=== PATIENT | female | born 1935 | race Caucasian/White ===

== ENCOUNTER → 2024-11-12 12:47 | Outpatient (REF) | payer OTHER, SELFPAY | LOC: HWRAD 12:47 | PROVIDERS: ATTENDING PHYSICIAN Nurse Practitioner; FAMILY PHYSICIAN Family Medicine | DX: N39.46 Mixed incontinence (principal); M99.05 Segmental and somatic dysfunction of pelvic region | CPT/HCPCS: 76770; 76856 ==

== ENCOUNTER 2025-01-10 06:16 | Day surgery (SDC) | payer OTHER, SELFPAY ==
[2024-12-31 11:04] LABS: Hematocrit 39.6 % (37.0-47.0); Hemoglobin 12.7 g/dL (12.0-16.0); Mean Corp Hgb Conc. 32.1 g/dL (33.0-37.0); Mean Corpuscular Hgb 30.9 pg (27.0-31.0); Mean Corpuscular Volume 96.4 fL (81.0-99.0); Mean Platelet Volume 10.9 fL (7.4-10.4); Platelet Count 249 10^3/uL (130-400); Red Blood Cell Count 4.11 10^6/uL (4.20-5.40); Red Cell Dist. Width 13.2 % (11.5-14.5); White Blood Cell Count 6.7 10^3/uL (4.8-10.8)
[2024-12-31 11:28] LABS: Blood Urea Nitrogen 16 mg/dl (7-17); Calcium 9.5 mg/dl (8.4-10.2); Carbon Dioxide 29 mmol/L (22-30); Chloride 103 mmol/L (98-107); Glucose 92 mg/dl (70-99); Potassium 4.3 mmol/L (3.5-5.1); Sodium 139 mmol/L (135-145); eGFR 43.54
[2024-12-31 11:49] VITALS: BMI 26.9
--- NOTE | 2025-01-03 10:54 | PTCARENOTE ---
Patients 12/31 Creat 1.2; GFR-43.54- Sierra @ Dr. Vazquez office notified
[2025-01-10] VITALS (10 sets, daily range): BP systolic 127–158; BP diastolic 48–67; BMI 26.9
[2025-01-10] MEDS: NORMOSOL-R/PLASMALYTE-A 1000 IV (10:17)
[2025-01-10] MEDS: Pyridium 200 MG PO (10:17)
== END 2025-01-10 13:30 | disposition home or self-care (01) ==
LOC: SDS 06:16
PROVIDERS: ATTENDING PHYSICIAN Obstetrics & Gynecology; FAMILY PHYSICIAN Family Medicine
DX: N39.3 Stress incontinence (female) (male) (principal); N36.41 Hypermobility of urethra; N95.2 Postmenopausal atrophic vaginitis
CPT/HCPCS: 57288; 36415; 80048; 85027; 93005; C1713; C1771

== ENCOUNTER → 2025-01-28 12:45 | Outpatient (REF) | payer OTHER, SELFPAY | LOC: RAD 12:45 | PROVIDERS: ATTENDING PHYSICIAN Physician Assistant; FAMILY PHYSICIAN Family Medicine | DX: R60.0 Localized edema (principal) | CPT/HCPCS: 93970 ==

== ENCOUNTER 2025-09-05 09:14 | Inpatient (IN) | payer OTHER, SELFPAY ==
[2025-08-30] VITALS (7 sets, daily range): BP systolic 109–158; BP diastolic 50–85; BMI 23.0
--- NOTE | 2025-08-30 15:09 | ED.GENMED ---
History of Present Illness
<Myrna Marie NP - Last Filed: 08/30/25 22:34>
General
Chief Complaint: Back Pain
Source: patient
Exam Limitations: none
Time Seen by Provider: 08/30/25 14:49
Nursing documentation reviewed up to this point in time: agreed with
History of Present Illness
History of Present Illness:
Patient to ED with complaint of low back pain. Symptoms started approx 5 days ago. SHe was admitted here after a fall. Sustained fracture to right pelvis and hip. SHe was transferred to rehab and reports doing well there. She returned home
approx 2 weeks ago. States 5 days ago she was sleeping on her left side and when she woke the pain was there. Pain continues to worsen. Unable to tolerate the pain. To ED today via EMS for evaluation.
Past History
<Myrna Marie NP - Last Filed: 08/30/25 22:34>
Past History
ED Past Medical History: Hypercholesterolemia and Other (Mitral valve prolapse, renal insufficiency)
Social History
Tobacco: Former smoker
Alcohol: Occasional
Drug: None
Personal:
Living: with family
Review of Systems
<Myrna Marie NP - Last Filed: 08/30/25 22:34>
Review of Systems
Allergies reviewed?: Yes
All Other Systems: ROS reviewed and negative except as documented in HPI and ROS
Constitutional: Reports no symptoms
EENT: Reports no symptoms
Respiratory: Reports no symptoms
Cardiac: Reports no symptoms
ABD/GI: Reports no symptoms
: Reports no symptoms
Musculoskeletal: Reports back pain (low back pain, occasional radiation to left hip.)
Skin: Reports no symptoms
Neurological: Reports no symptoms
Psychiatric: Reports no symptoms
Phy Exam
<Myrna Marie NP - Last Filed: 08/30/25 22:34>
General Physical Exam
General Presentation: moderate distress
General age: appears stated age
General Skin: warm and dry
General Habitus: normal
General Mental: alert
Cardiovascular Exam
Cardiovascular Exam: regular rate/rhythm and no edema
Gastrointestinal Exam
Gastrointestinal Exam: normal bowel sounds, non tender, soft and no organomegaly
Musculoskeletal Exam
Musculoskeletal Exam: neuro vasc intact
Skin Exam
Skin Exam: normal color, warm/dry and no rash
Psychiatric Exam
Psychiatric Exam: normal mood/affect
Course
<Myrna Marie SAMPLE PROCESSOR - Last Filed: 08/30/25 22:34>
Orders/Labs/Results
Orders:
Orders
08/30/25 15:08
HYDROmorphone [Dilaudid] 0.25 mg IV NOW STA
Ondansetron Injectable [Zofran] 4 mg IV NOW STA
08/30/25 15:28
Lumbar Spine Complete, 4 View [CR Lumbar Spine Comp Min 4 Vw*] Urgent
Comment:
Reason For Exam: pain
08/30/25 15:39
Urinalysis Reflex To Culture Urgent
Date Specimen was Collected: 08/30/25
Time Specimen was Collected: 15:38
Urine Microscopic Reflex Cult Urgent
Urine Culture Urgent
ROBINA Source: U
Specimen Description:
Date Specimen was Collected: 08/30/25
Time Specimen was Collected: 15:38
08/30/25 16:10
HYDROmorphone [Dilaudid] 0.25 mg IV NOW STA
08/30/25 16:18
CT Abd/pel Without Iv Or Oral Urgent
Comment:
Reason For Exam: left low back/flank radiating to llq
08/30/25 16:21
Complete Blood Count/With Diff Urgent
Comprehensive Metabolic Panel Urgent
Magnesium Urgent
Comment: ADD ON
TSH Reflex To Free T4 Urgent
Comment: ADD ON
08/30/25 20:24
Magnesium Sulfate 2 Gram/50 ml [Magnesium Sulfate] 2 gram in 50 ml IV NOW
08/30/25 20:57
Admit/Transfer Patient As Directed
Co-Sign Provider:
Level of Care: Observation services
Assign to:: Medical/Surgical
Physician / Group: Awilda Menezes
Diagnosis: intractable left hip and left lower back pain
PRN Pain Medication Management As Directed
May give lesser potent ordered pain med per pt: Yes
preference::
Protocol:: Medication orders for pain may be administered in a
manner that supports deferring to patient preference
when the pt is:
- Requesting an ordered lesser potent pain medication.
Least to most potent pain medications are defined
as: acetaminophen < NSAID < tramadol < opioids
(morphine, oxycodone, hydromorphone).
- Requesting a lesser dose of the same medication IF
ORDERED.
- Requesting a less intrusive route of administration
if both routes are prescribed by the provider (PO <
IV).
08/30/25 20:58
Code Status As Directed
Resuscitation Status: Do not resuscitate
Reached after discussion with pt or family/Healthcare POA: Yes
Decision communicated with: patient
DNR Bracelet Application ONCE
08/30/25 21:50
Ibuprofen [Motrin] 400 mg PO Q6HPRN PRN
Oxycodone [Roxicodone] 5 mg PO Q4HPRN PRN
Trazodone [Desyrel] 50 mg PO HS PRN Insomnia
08/30/25 21:50
Activity As Directed
Activity Level: As Tolerated
Vital Signs As Directed
Frequency: Per unit guidelines
Weight As Directed
Frequency: Once
Comment: on admission
Pt Eval And Treat Routine
Activity Level: As Tolerated
DX Deep Vein Thrombosis Video Routine
08/30/25 22:00
Acetaminophen [Tylenol] 1,000 mg PO TID
Atorvastatin [Lipitor] 40 mg PO HS
Carbidopa/Levodopa [Sinemet 25-100] 1 tablet PO TID
Duloxetine Delayed Release [Cymbalta Delayed Release] 30 mg PO TID@1200,1700,2200
Pramipexole [Mirapex] 0.125 mg PO TID
08/31/25 Breakfast
Regular
08/31/25 08:00
Aspirin Low Dose EC [Aspir Low (Enteric Coated)] 81 mg PO DAILY
Duloxetine Delayed Release [Cymbalta Delayed Release] 60 mg PO DAILY
Lidocaine [Lidocaine 4% Patch] 1 patch TOPICAL DAILY
Apply Lidocaine patch(s) to:: left lower back/left hip
Losartan [Cozaar] 25 mg PO DAILY
Metoprolol Xl [Toprol Xl] 25 mg PO DAILY
Pantoprazole [Protonix] 40 mg PO DAILY
08/31/25 18:00
Enoxaparin Sodium [Lovenox] 40 mg SC QPM
Abnormal Lab Results
08/30/25 08/30/25
15:39 16:21
RBC 3.59 L 10^6/uL
(4.20-5.40)
Hgb 11.1 L g/dL
(12.0-16.0)
Hct 33.1 L %
(37.0-47.0)
MPV 10.7 H fL
(7.4-10.4)
Absolute Neuts (auto) 6.8 H 10^3/uL
(1.4-6.5)
Absolute Lymphs (auto) 1.0 L 10^3/uL
(1.2-3.4)
Absolute Monos (auto) 0.7 H 10^3/uL
(0.1-0.6)
Neutrophils % 77.4 H %
(42.2-75.2)
Lymphocytes % 10.9 L %
(20.5-51.1)
Sodium 134 L mmol/L
(135-145)
BUN 33 H mg/dl
(7-17)
Glucose 101 H mg/dl
(70-99)
Magnesium 1.5 L mg/dl
(1.6-2.3)
Total Protein 6.2 L g/dl
(6.3-8.2)
Ur Occult Blood Reflex 2+ A
(Negative)
Leukocyte Esterase Rfl 2+ A
(Negative)
Urine RBC 3-6 A /HPF
(0-2)
Urine Bacteria (Reflex) Few A
(Negative)
Urine Albumin (Reflex) 1+ A
(Neg - Trace)
08/30/25 16:21
08/30/25 16:21
Vital Signs
Initial and Last Documented VS:
Initial Vital Signs
Temp Pulse Resp BP Pulse Ox
98.1 F 84 16 125/57 91
08/30/25 14:12 08/30/25 14:12 08/30/25 14:12 08/30/25 14:12 08/30/25 14:12
Last Documented Vital Signs
Temp Pulse Resp BP Pulse Ox
97.9 F 81 16 109/67 92
08/30/25 22:08 08/30/25 22:08 08/30/25 22:08 08/30/25 22:08 08/30/25 22:08
<Reed Berg MD - Last Filed: 08/30/25 19:22>
Orders/Labs/Results
Orders:
Orders
08/30/25 15:08
HYDROmorphone [Dilaudid] 0.25 mg IV NOW STA
Ondansetron Injectable [Zofran] 4 mg IV NOW STA
08/30/25 15:28
Lumbar Spine Complete, 4 View [CR Lumbar Spine Comp Min 4 Vw*] Urgent
Comment:
Reason For Exam: pain
08/30/25 15:39
Urinalysis Reflex To Culture Urgent
Date Specimen was Collected: 08/30/25
Time Specimen was Collected: 15:38
Urine Microscopic Reflex Cult Urgent
Urine Culture Urgent
ROBINA Source: U
Specimen Description:
Date Specimen was Collected: 08/30/25
Time Specimen was Collected: 15:38
08/30/25 16:10
HYDROmorphone [Dilaudid] 0.25 mg IV NOW STA
08/30/25 16:18
CT Abd/pel Without Iv Or Oral Urgent
Comment:
Reason For Exam: left low back/flank radiating to llq
08/30/25 16:21
Complete Blood Count/With Diff Urgent
Comprehensive Metabolic Panel Urgent
Magnesium Urgent
Comment: ADD ON
TSH Reflex To Free T4 Urgent
Comment: ADD ON
08/30/25 20:24
Magnesium Sulfate 2 Gram/50 ml [Magnesium Sulfate] 2 gram in 50 ml IV NOW
08/30/25 20:57
Admit/Transfer Patient As Directed
Co-Sign Provider:
Level of Care: Observation services
Assign to:: Medical/Surgical
Physician / Group: Awilda Menezes
Diagnosis: intractable left hip and left lower back pain
PRN Pain Medication Management As Directed
May give lesser potent ordered pain med per pt: Yes
preference::
Protocol:: Medication orders for pain may be administered in a
manner that supports deferring to patient preference
when the pt is:
- Requesting an ordered lesser potent pain medication.
Least to most potent pain medications are defined
as: acetaminophen < NSAID < tramadol < opioids
(morphine, oxycodone, hydromorphone).
- Requesting a lesser dose of the same medication IF
ORDERED.
- Requesting a less intrusive route of administration
if both routes are prescribed by the provider (PO <
IV).
08/30/25 20:58
Code Status As Directed
Resuscitation Status: Do not resuscitate
Reached after discussion with pt or family/Healthcare POA: Yes
Decision communicated with: patient
DNR Bracelet Application ONCE
08/30/25 21:50
Ibuprofen [Motrin] 400 mg PO Q6HPRN PRN
Oxycodone [Roxicodone] 5 mg PO Q4HPRN PRN
Trazodone [Desyrel] 50 mg PO HS PRN Insomnia
08/30/25 21:50
Activity As Directed
Activity Level: As Tolerated
Vital Signs As Directed
Frequency: Per unit guidelines
Weight As Directed
Frequency: Once
Comment: on admission
Pt Eval And Treat Routine
Activity Level: As Tolerated
DX Deep Vein Thrombosis Video Routine
08/30/25 22:00
Acetaminophen [Tylenol] 1,000 mg PO TID
Atorvastatin [Lipitor] 40 mg PO HS
Carbidopa/Levodopa [Sinemet 25-100] 1 tablet PO TID
Duloxetine Delayed Release [Cymbalta Delayed Release] 30 mg PO TID@1200,1700,2200
Pramipexole [Mirapex] 0.125 mg PO TID
08/31/25 Breakfast
Regular
08/31/25 08:00
Aspirin Low Dose EC [Aspir Low (Enteric Coated)] 81 mg PO DAILY
Duloxetine Delayed Release [Cymbalta Delayed Release] 60 mg PO DAILY
Lidocaine [Lidocaine 4% Patch] 1 patch TOPICAL DAILY
Apply Lidocaine patch(s) to:: left lower back/left hip
Losartan [Cozaar] 25 mg PO DAILY
Metoprolol Xl [Toprol Xl] 25 mg PO DAILY
Pantoprazole [Protonix] 40 mg PO DAILY
08/31/25 18:00
Enoxaparin Sodium [Lovenox] 40 mg SC QPM
Abnormal Lab Results
08/30/25 08/30/25
15:39 16:21
RBC 3.59 L 10^6/uL
(4.20-5.40)
Hgb 11.1 L g/dL
(12.0-16.0)
Hct 33.1 L %
(37.0-47.0)
MPV 10.7 H fL
(7.4-10.4)
Absolute Neuts (auto) 6.8 H 10^3/uL
(1.4-6.5)
Absolute Lymphs (auto) 1.0 L 10^3/uL
(1.2-3.4)
Absolute Monos (auto) 0.7 H 10^3/uL
(0.1-0.6)
Neutrophils % 77.4 H %
(42.2-75.2)
Lymphocytes % 10.9 L %
(20.5-51.1)
Sodium 134 L mmol/L
(135-145)
BUN 33 H mg/dl
(7-17)
Glucose 101 H mg/dl
(70-99)
Magnesium 1.5 L mg/dl
(1.6-2.3)
Total Protein 6.2 L g/dl
(6.3-8.2)
Ur Occult Blood Reflex 2+ A
(Negative)
Leukocyte Esterase Rfl 2+ A
(Negative)
Urine RBC 3-6 A /HPF
(0-2)
Urine Bacteria (Reflex) Few A
(Negative)
Urine Albumin (Reflex) 1+ A
(Neg - Trace)
08/30/25 16:21
08/30/25 16:21
Vital Signs
Initial and Last Documented VS:
Initial Vital Signs
Temp Pulse Resp BP Pulse Ox
98.1 F 84 16 125/57 91
08/30/25 14:12 08/30/25 14:12 08/30/25 14:12 08/30/25 14:12 08/30/25 14:12
Last Documented Vital Signs
Temp Pulse Resp BP Pulse Ox
97.9 F 81 16 109/67 92
08/30/25 22:08 08/30/25 22:08 08/30/25 22:08 08/30/25 22:08 08/30/25 22:08
<Myrna Marie NP - Last Filed: 08/30/25 22:34>
*Pulse Oximetry
SaO2: 91
Oxygen Mode of Delivery: Room air
Patient hypoxic: no
*Critical Care Note
Total Time (30-74mins, 75-104mins- exclusive of procedures): Not Applicable
<Myrna Marie NP - Last Filed: 08/30/25 22:34>
Update Note
Update Note:
Patient to the emergency department from home with report of left lower back pain. Pain started approximately 5 days ago. She was recently discharged from a rehab facility after sustaining fractures to her right pelvis and right wrist due to a
fall. She states when she came home she was able to walk with a walker. Now states she has been laying in bed since Friday due to the pain in her left lower back. No history of new trauma. Lumbar x-ray reviewed, degenerative changes noted, no
acute fracture noted. CT of abdomen pelvis completed which she reports intermittent radiation of pain to right flank and groin. Subacute fractures of the right pelvis noted on CT, no acute findings. She was given 2 doses of Dilaudid in the ED.
Still with difficulty ambulating due to intense pain. Will admit to the hospitalist for intractable pain.
ED Attending Note
<Myrna Marie NP - Last Filed: 08/30/25 22:34>
-
Portions of this chart may have been created with voice recognition software.� Occasional wrong word or��sound alike� substitutions may have occurred due to the inherent limitations of voice recognition software.
<Reed Berg MD - Last Filed: 08/30/25 19:22>
ED Attending Note
Patient seen and examined by attending physician: Yes
I performed the substantive portion of visit, reviewed & personally made and approve the management plan that is documented in note by myself or BRANDON.: Yes
ED Attending Note:
I have seen and evaluated the patient with a [id number] encounter. I have spoken to the [BRANDON] and involved in the medical history, the physical exam, medical decision making.
Evaluation and management service: agree unless noted differently below.
Results interpretation: agree unless noted differently below.
89-year-old woman presenting to the emergency department with back pain. Per EMS she has been stuck in bed for the past few days after fall with pelvis fractures and wrist fractures that occurred 1-1/2 months ago. She was at rehab and now she is
home alone. A visiting nurse saw her today and told her to come to the emergency department for further evaluation. Patient at this time has no complaints besides with back pain. No numbness tingling. Slight weakness secondary to the pain.
During my evaluation patient is resting comfortably. Her abdomen soft nontender nondistended. She does have some weakness to her bilateral lower extremities which she says secondary to the pain. No sensory deficits. Will repeat imaging. Likely
patient will need admission for unsafe discharge home as well as intractable pain.
Discharge Plan
Departure
Patient Disposition: Admit
Date of Disposition: 08/30/25
Time of Disposition: 18:08
Presentation/result/management discussed w/ accepting MD/DO: Hospitalist
Condition: Fair
Covid-19: Not Applicable
Discharge Problem:
Intractable low back pain
Interventions
Interventions:
*Risk Screen - Suicide Last Done: 08/30/25 14:12
*General Assessment Last Done: 08/30/25 14:12
*Neglect/Abuse Screening Last Done: 08/30/25 14:12
*ED- Fall Risk Assessment Last Done: 08/30/25 19:44
*ED COVID-19 Vaccine History Last Done: 08/30/25 14:12
*ED Influenza Vaccine History Last Done: 08/30/25 14:12
*Nursing Disposition Last Done: 08/30/25 21:44
ED-Musculoskeletal Assessment Last Done: 08/30/25 19:46
Discharge Date and Time
Discharge Date/Time: 08/30/25 21:46
[2025-08-30] MEDS: ZOFRAN 4 MG IV (15:26)
[2025-08-30] MEDS: DILAUDID 0.25 MG IV ×2 (15:26→16:20)
[2025-08-30 16:03] LABS: Urine Character Clear (Clear)
[2025-08-30 16:27] LABS: Hematocrit 33.1 % (37.0-47.0); Hemoglobin 11.1 g/dL (12.0-16.0); Mean Corp Hgb Conc. 33.5 g/dL (33.0-37.0); Mean Corpuscular Volume 92.2 fL (81.0-99.0); Nucleated Red Blood Cells % 0 %; Platelet Count 281 10^3/uL (130-400); Red Cell Dist. Width 13.7 % (11.5-14.5)
[2025-08-30 16:44] LABS: ALT (SGPT) < 10 U/L (0-35); AST (SGOT) 15 U/L (14-36); Albumin 3.7 g/dl (3.5-5.0); Alkaline Phosphatase 101 U/L (38-126); Blood Urea Nitrogen 33 mg/dl (7-17); Calcium 9.6 mg/dl (8.4-10.2); Carbon Dioxide 25 mmol/L (22-30); Chloride 106 mmol/L (98-107); Estimated Creatinine Clearance 39 ml/min; Glucose 101 mg/dl (70-99); Potassium 4.6 mmol/L (3.5-5.1); Sodium 134 mmol/L (135-145); Total Protein 6.2 g/dl (6.3-8.2); eGFR > 60.00
[2025-08-30 16:50] LABS: Magnesium 1.5 mg/dl (1.6-2.3)
--- NOTE | 2025-08-30 20:07 | HPS.HSE ---
Family Physician
-
Family Physician: Myrna Pathak
Chief Complaint
-
pain to left side and left lower back
History of Present Illness
Patient is a 89-year-old female with past medical history significant for hypertension, hypercholesterolemia, chronic back pain, COPD, GERD, depression, chronic kidney disease stage IIIb and chronic tubulointerstitial nephritis who presented to [facility]
ED for evaluation of increased pain to left side and left lower back. Patient reports a fall with fracture, week stay at [facility] and then 5 weeks in [facility], where she reported doing really well. She returned home 2 weeks ago and
has been able to ambulate with walker and complete all ADLs until 3-4 days ago she noticed increased pain and difficulty ambulating that progressively got worse and in last two days has not been able to do anything at all. She reports that visiting
nurse came and recommended evaluation in ED. She denies any recent illness, fever, chills, cough, shortness of breath, chest pain, nausea, vomiting, constipation, diarrhea or urinary symptoms.
Medical History
Past Medical History
Past Medical History: Reports Other
Additional Past Medical History:
hypertension
hypercholesterolemia
chronic back pain
COPD
GERD
depression
chronic kidney disease stage IIIb
chronic tubulointerstitial nephritis
Past Surgical History: Reports Other
Additional Past Surgical History:
appendectomy
bilateral breast biopsy
hysterectomy
bilateral cataract extraction
Social History
Tobacco: Non-smoker
Alcohol: Occasional
Drug: None
Living: Alone
Family History
Family History: Not pertinent
Allergies / Home Medications
Allergies reflects when Allergies were last updated in [employer].
Home Medications with original date entered in [employer]
Allergy/Medication List:
Allergies
Allergy/AdvReac Type Severity Reaction Status Date / Time
levofloxacin (From Levaquin) Allergy itching at Verified 08/30/25 14:11
injection
site after
several
doses in
2012
penicillin G (Penicillin G) Allergy Rash, Verified 08/30/25 14:11
Itching
vancomycin (Vancomycin) Allergy Rash, Verified 08/30/25 14:11
Itching
Home Medications
aspirin 81 mg tablet,delayed release 81 mg PO DAILY 01/03/25
atorvastatin 40 mg tablet (Lipitor) 40 mg PO HS 01/03/25
carbidopa 25 mg-levodopa 100 mg tablet (Sinemet) 1 tab PO TID 01/03/25
duloxetine 30 mg capsule,delayed release (Cymbalta) 30 mg PO TID@1200,1700,2200 01/03/25
duloxetine 60 mg capsule,delayed release (Cymbalta) 60 mg PO DAILY 01/03/25
losartan 25 mg tablet (Cozaar) 25 mg PO DAILY 01/03/25
metoprolol succinate 25 mg tablet,extended release 24 hr (Toprol XL) 25 mg PO DAILY 01/03/25
pantoprazole 40 mg tablet,delayed release 40 mg PO DAILY 01/03/25
pramipexole 0.125 mg tablet 0.125 mg PO TID 01/03/25
trazodone 50 mg tablet 50 mg PO HS PRN Insomnia 01/03/25
Review of Systems
-
History Source: Patient
Constitutional: Denies Fever or Chills
EENT: Denies Sore Throat
Respiratory: Denies Cough, Hemoptysis or Trouble Breathing
Cardiac: Denies Chest Pain, Diaphoresis, Palpitations or Syncope
Abdomen/GI: Denies Abdominal Pain, Nausea, Vomiting or Diarrhea
: Denies Dysuria, Frequency or Urgency
Musculoskeletal: Reports Joint Pain (left hip) and Other (left lower back pain ); Denies Joint Swelling or Edema
Skin: Denies Rash
Neurological: Denies Dizzy, Headache, Weakness or Numbness
Physical Exam
Vital Signs
Vital Signs
Temp Pulse Resp BP Pulse Ox
97.6 F 78 20 152/68 92
08/30/25 19:49 08/30/25 19:48 08/30/25 19:48 08/30/25 19:48 08/30/25 19:48
Physical Exam
General: Well Developed, Well Nourished, No Apparent Distress, Comfortable and Conversant
HEENT: NormoCephalic, Moist mucous membranes, PERRLA, Nose Appears Normal and Ears Appear Normal
Respiratory: Clear and Non Labored Respirations
Cardiac: S1/S2 and Regular Rhythm; No Murmur or Peripheral Edema
GI: Soft, Non Tender and Normal Bowel Sounds
Musculoskeletal: No Clubbing, No Cyanosis and No Edema
Skin: Warm and IV/Catheter Site
Neuro: Awake and AO x 3
Hematologic/Lymphatic: No Lymphadenopathy
Psych: Calm and Intact Judgment/Insight
Laboratory Results
-
08/30/25 16:21
08/30/25 16:21
Laboratory Results
Total Bilirubin 0.6 mg/dl (0.2-1.3) 08/30/25 16:21
AST 15 U/L (14-36) 08/30/25 16:21
ALT < 10 U/L (0-35) 08/30/25 16:21
Alkaline Phosphatase 101 U/L (38-126) 08/30/25 16:21
Data Reviewed
-
Diagnostic Radiology: Report Reviewed by me (Lumbar spine: Postoperative and multilevel degenerative changes of the lumbar spine without acute fracture or complication.)
CT Scan: Report Reviewed by me (Abd/Pel: No renal or ureteral calculus. No bladder calculus. No obstructive uropathy. Asymmetric left renal cortical atrophy and cortical scarring. Small right renal cyst. Diverticulosis without acute
diverticulitis. Mild to moderate colonic fecal burden. No acute inflammatory process within the)
Lab Data: Labs Reviewed by me (mag 1.5)
Impression/Plan
-
IMPRESSION/PLAN:
#intractable left hip and left lower back pain
Lumbar spine x-ray: Postoperative and multilevel degenerative changes of the lumbar spine without acute fracture or complication.
Abd/Pel CT: No renal or ureteral calculus. No bladder calculus. No obstructive uropathy.
Asymmetric left renal cortical atrophy and cortical scarring. Small right renal cyst.
Diverticulosis without acute diverticulitis.
Mild to moderate colonic fecal burden.
No acute inflammatory process within the abdomen or pelvis.
Small liver cyst.
Cholelithiasis.
Subacute fractures involving the right sacrum, right superior and inferior pubic ramus and right pubic body, as described.
Lumbar postsurgical and degenerative changes.
- Admit to med/surg
- Consult PT
- Tylenol TID
- lidocaine patch daily
- PRN ibuprofen
- PRN oxycodone
#Parkinson's Disease
- continue Sinemet and Mirapex
#hypertension
- continue losartan and metoprolol
#hypercholesterolemia
- continue atorvastatin
#chronic back pain
- continue Cymbalta
#GERD
- continue pantoprazole
#depression
- continue trazodone
#COPD
#chronic kidney disease stage IIIb
#chronic tubulointerstitial nephritis
Code status: DNR
DVT prophylaxis: Lovenox sq
--- NOTE | 2025-08-30 20:34 | W.PN.UPDATE ---
Update Note
Progress Note Update
Patient seen in conjunction with nurse practitioner. I agree with the findings history and physical. I concur with assessment and plan unless otherwise stated.
This is a 89-year-old female who lives at home and has extensive past medical history including history of COPD, GERD, chronic osteoarthritis, restless leg syndrome, depression, prior back surgery requiring katja and screw insertion in 2007 who
presents to the emergency department from home for ambulatory dysfunction.
Patient had a fall about 1-1/2 months ago and had fractures to the pelvis and right wrist which was managed nonsurgically at [facility]. Fall was secondary to dog yanking on the leash and dragging her to the ground. She otherwise denies
ambulatory or gait difficulties. She was at a rehab and was discharged home alone., She did well at rehab. After being home she started noticing left-sided hip pain about 3 days ago. It became severe enough that she did not want to walk due to
the pain. She reports decreased p.o. intake due to not going to the kitchen to feed herself. She denies any radiation. She denies any incontinence of the bladder or bowel. Visiting nurse patient's today and found to have stuck in her bed.
Patient reports that she has been in bed for the last 3 days due to back pain.
In the emergency department the patient was afebrile, blood pressure was 152/60 with a pulse of 78 and was satting 92% on room air. CBC was normal. Electrolyte BUN/creatinine were in the normal range. UA was equivocal with some leukocyte esterase
and few WBCs and few bacteria but asymptomatic. Lumbar spine x-ray shows chronic multilevel degenerative disease of the spine. CT of the abdomen pelvis with subacute fractures involving the right sacrum, right superior and inferior pubic ramus and
right pubic body.
Assessment and plan
89-year-old female with chronic back pain and prior back surgery and recent pelvic fracture presenting to the emergency department with essentially ambulatory dysfunction in the setting of uncontrolled back pain at home. She is status post rehab
but lives alone and has been unable to ambulate by herself with help.
Ambulatory dysfunction -secondary to back pain and recent pelvic fracture
- Admit to MedSurg observation
- Management of back pain with analgesic including acetaminophen, Carprofen, low-dose oxycodone, topical lidocaine
- PT consultation
- Case management as patient may require return to rehab
Positive urinalysis -patient shows no classic symptoms, is afebrile and shows no leukocytosis. Status post sling
- Urine culture
- IV fluids and repeat UA but hold off on antibiotics for now unless symptomatic
Restless leg syndrome
- Continue Sinemet
-continue pramipexole
hypertension
- Continue her losartan, continue metoprolol
DVT prophylaxis -Lovenox subcu
CODE STATUS�DNR
[2025-08-30] MEDS: MAGNESIUM SULFATE 50 IV (20:46)
[2025-08-30] MEDS: ROXICODONE 5 MG PO (22:54)
[2025-08-30] MEDS: TYLENOL PO (22:55)
[2025-08-30] MEDS: SINEMET 25-100 1 TABLET PO (22:55)
[2025-08-30] MEDS: LIPITOR 40 MG PO (22:55)
[2025-08-30] MEDS: MIRAPEX 0.125 MG PO (22:57)
[2025-08-30] MEDS: NSS 500 IV (23:07)
[2025-08-31] MEDS: ROXICODONE 5 MG PO ×3 (05:56→21:05)
[2025-08-31] MEDS: COZAAR 25 MG PO (08:12)
[2025-08-31] MEDS: ASPIR LOW (ENTERIC COATED) 81 MG PO (08:12)
[2025-08-31] MEDS: TOPROL XL 25 MG PO (08:13)
[2025-08-31] MEDS: PROTONIX 40 MG PO (08:13)
[2025-08-31] MEDS: MIRAPEX 0.125 MG PO ×3 (08:13→21:05)
[2025-08-31] MEDS: CYMBALTA DELAYED RELEASE 60 MG PO (08:13)
[2025-08-31] MEDS: SINEMET 25-100 1 TABLET PO ×3 (08:13→21:05)
[2025-08-31] MEDS: LIDOCAINE 4% PATCH 1 PATCH TOPICAL (08:13)
[2025-08-31] MEDS: DESENEX/MITRAZOL/ZEASORB 1 APPLIC TOPICAL ×2 (08:13→21:04)
[2025-08-31] MEDS: TYLENOL 1000 MG PO ×3 (08:14→22:20)
[2025-08-31 08:27] VITALS: BP 142/57
--- NOTE | 2025-08-31 08:38 | W.PN.HOSP.TC ---
Today's Communication/Plan
-
Multimodal analgesic
PT/OT assessment
IVF and trend orthostats
Monitor for urinary symptoms
Assessment / Plan
Assessment / Plan
#Intractable back pain
#Recent pelvic fracture due to mechanical fall
#Back surgery with screw placement (2007)
#Ambulatory dysfunction
- Presented with intractable back pain secondary to recent fall when she was laying down by her dog
- CT abdomen/pelvis here showed subacute fractures of the right sacrum, superior and inferior pubic ramus as well as body
- Upon arrival was started on multimodal analgesic regimen with Tylenol, NSAIDs, topical lidocaine, and PRN oxycodone
- PT was consulted, anticipate she may require SNF placement, case management on board
- Continue to monitor pain and titrate analgesics as needed
- Encourage OOB activity as tolerated, WBAT
#Positive urinalysis
- Urinary tract infection versus asymptomatic bacteriuria
- UA with moderate bacteria, pyuria, positive leukocyte esterase; negative nitrite
- Denies any symptoms at this time, will continue to monitor
- Trend CBC and temperature curve off antibiotics for now
#Orthostatic hypotension
- Possibly associated with analgesics and hypokalemia
- Positive orthostatic vitals associated with symptoms on 08/31 with PT
- Will start on maintenance IV fluids and trend daily orthostats
- Consider midodrine PRN
#COPD
- Stable, home regimen currently without any bronchodilators or ICS
- No signs of bronchospasm at this time, continue to monitor clinically
#CKD stage IIIb
#Chronic tubulointerstitial nephritis
- Creatinine baseline near 1.2; no known systemic complications of CKD
- Will continue to monitor BMP and UOP here, avoid nephrotoxins as able
#GERD
- No known history of Mendez's esophagus or erosive disease
- Home regimen includes pantoprazole 40 mg daily
#Restless leg syndrome
- Home regimen includes Sinemet and pramipexole
#Primary hypertension
- Home medications include losartan 25 mg daily and metoprolol succinate 25 mg daily
- No known history of hypertensive systemic disease
- Blood pressure currently well-controlled
#Abdominal aortic aneurysm
#Bilateral carotid stenosis
#H/O TIA
- Has ASCVD history; no known stents or bypasses
- Home regimen includes high intensity statin and aspirin
Diet: Regular
DVT: SQ heparin
CODE: DNR
Disposition: Pending PT
Anticipated Discharge: Within 24 hours
Subjective/Interval History
-
Date of Service: August 31, 2025
Seen and examined at the bedside. No acute events reported overnight. AFVSS this morning
Was working with physical therapy when she developed lightheadedness after standing, blood pressure dropped to SBP in the 80s. Improved with time and laying back down.
Denies any other new complaints. Pain is well-controlled, denies chest pain, dyspnea, fevers or chills
Objective Data
-
Labs:
Laboratory Results
08/31/25
08:33
WBC Pending
Hgb Pending
Hct Pending
Plt Count Pending
Sodium Pending
Potassium Pending
Chloride Pending
Carbon Dioxide Pending
BUN Pending
Creatinine Pending
Glucose Pending
Calcium Pending
Vital Signs:
Vital Signs
Temp Pulse Resp BP Pulse Ox
97.8 F 76 18 142/57 99
08/31/25 08:27 08/31/25 08:27 08/31/25 08:27 08/31/25 08:27 08/31/25 08:27
I&O
08/30/25 08/31/25 09/01/25
06:59 06:59 06:59
Intake Total 700 / 700
Balance 700 / 700
Review of Systems
-
History Source: Patient
All other systems: Reviewed and negative
Physical Exam
-
General: Well Developed, Well Nourished and No Apparent Distress
HEENT: Normocephalic, Atraumatic, Moist Mucous Membranes and Anicteric
Respiratory: Clear to Auscultation and Non Labored Respirations; Negative Accessory Resp Muscle Use
Cardiac: Regular Rhythm, S1/S2 and Other (occasional PVC/PAC); Negative Murmur, Rub or Gallop
GI: Soft, Nontender, Nondistended and Normal Bowel Sounds
Musculoskeletal: No Clubbing, No Cyanosis, No Edema and Normal Gait & Station
Skin: Warm and Dry; Negative Rash
Neuro: AO x 3, Nonfocal/Grossly Intact and Central Nerve's Intact; Negative Tremors
Psych: Calm
Data Reviewed
-
Labs: Labs Reviewed by me, Discussed with Nurse and Discussed with Patient
[2025-08-31 08:57] LABS: Hematocrit 32.5 % (37.0-47.0); Hemoglobin 10.8 g/dL (12.0-16.0); Mean Corp Hgb Conc. 33.2 g/dL (33.0-37.0); Mean Corpuscular Volume 91.5 fL (81.0-99.0); Nucleated Red Blood Cells % 0 %; Platelet Count 266 10^3/uL (130-400); Red Cell Dist. Width 13.7 % (11.5-14.5)
[2025-08-31 09:05] VITALS: BP 129/55; BP 87/42; PULSE 82
[2025-08-31 09:23] LABS: Blood Urea Nitrogen 20 mg/dl (7-17); Calcium 9.2 mg/dl (8.4-10.2); Carbon Dioxide 24 mmol/L (22-30); Chloride 108 mmol/L (98-107); Estimated Creatinine Clearance 39 ml/min; Glucose 132 mg/dl (70-99); Magnesium 1.9 mg/dl (1.6-2.3); Potassium 4.1 mmol/L (3.5-5.1); Sodium 139 mmol/L (135-145); eGFR > 60.00
[2025-08-31] MEDS: LR 1000 IV ×2 (10:03→22:21)
[2025-08-31] MEDS: CYMBALTA DELAYED RELEASE 30 MG PO ×2 (11:05→17:13)
--- NOTE | 2025-08-31 12:00 | WOUNDNOTE ---
[facility] RN note: Patient seen during prevention rounds with leaflet or newspaper deliverer Maya Burns Skin on patient's heels intact. Protective foam dressing applied by GÉNESIS Trejo. Patient has mild MASD in alyse/buttocks/coccyx crease d/t moisture. She uses incontinence
briefs. Patient's incontinence brief wet. Brief removed and absorbant disposable under pad in place. Encouraged patient to get skin breaks from her pull up incontinence briefs. Left a mesh shorts with a couple of maternity pads if needed. Patient
turned self in bed. Heels off bed with pillow. Air chair cushion given. Instructed patient pressure injury prevention measures.
--- NOTE | 2025-08-31 12:00 | WOUNDNOTE ---
EAMON/BUTTOCKS/COCCYX CREASE
[2025-08-31 15:00] VITALS: BP 156/66
--- NOTE | 2025-08-31 16:12 | CM ---
card room manager reviewed patient's chart and met with patient and patient was admitted from home, patient states she lives in a condo with one step to enter, patient is independent with adl's and uses a walker with ambulation, patient has a cane that
she does not use, patient [facility].
PCP: Myrna Pathak
Pharmacy: [facility] in [place]
Plan; Home with [facility]
[2025-08-31] MEDS: LOVENOX 40 MG SC (17:12)
[2025-08-31] MEDS: LIPITOR 40 MG PO (21:05)
[2025-08-31 23:41] VITALS: BP 159/63
[2025-09-01] MEDS: ROXICODONE 5 MG PO ×2 (05:44→10:27)
[2025-09-01 07:46] VITALS: BP 125/70
[2025-09-01 07:48] VITALS: BP 125/70; BP 178/77; PULSE 74; PULSE 75
[2025-09-01] MEDS: LIDOCAINE 4% PATCH 1 PATCH TOPICAL (08:09)
--- NOTE | 2025-09-01 08:10 | W.PN.HOSP.TC ---
Today's Communication/Plan
-
Repeat orthostatic vital sign
Dispo planning
Assessment / Plan
Assessment / Plan
#Intractable back pain
#Recent pelvic fracture due to mechanical fall
#Back surgery with screw placement (2007)
#Ambulatory dysfunction
- Presented with intractable back pain secondary to recent fall when she was laying down by her dog
- CT abdomen/pelvis here showed subacute fractures of the right sacrum, superior and inferior pubic ramus as well as body
- Upon arrival was started on multimodal analgesic regimen with Tylenol, NSAIDs, topical lidocaine, and PRN oxycodone
- PT was consulted, anticipate she may require SNF placement, case management on board
- Continue to monitor pain and titrate analgesics as needed
- Encourage OOB activity as tolerated, WBAT
#Asymptomatic bacteriuria
- UA with moderate bacteria, pyuria, positive leukocyte esterase; negative nitrite
- Denies any symptoms at this time, will continue to monitor
- Trend CBC and temperature curve off antibiotics for now
#Orthostatic hypotension
- Possibly associated with analgesics and hypokalemia
- Positive orthostatic vitals associated with symptoms on 08/31 with PT
- Will start on maintenance IV fluids and trend daily orthostats
- Repeat orthostatic vital signs negative this morning
#COPD
- Stable, home regimen currently without any bronchodilators or ICS
- No signs of bronchospasm at this time, continue to monitor clinically
#CKD stage IIIb
#Chronic tubulointerstitial nephritis
- Creatinine baseline near 1.2; no known systemic complications of CKD
- Will continue to monitor BMP and UOP here, avoid nephrotoxins as able
#GERD
- No known history of Mendez's esophagus or erosive disease
- Home regimen includes pantoprazole 40 mg daily
#Restless leg syndrome
- Home regimen includes Sinemet and pramipexole
#Primary hypertension
- Home medications include losartan 25 mg daily and metoprolol succinate 25 mg daily
- No known history of hypertensive systemic disease
- Blood pressure currently well-controlled
#Abdominal aortic aneurysm
#Bilateral carotid stenosis
#H/O TIA
- Has ASCVD history; no known stents or bypasses
- Home regimen includes high intensity statin and aspirin
Diet: Regular
DVT: SQ heparin
CODE: DNR
Disposition: Homecare
Anticipated Discharge: Within 24 hours
Subjective/Interval History
-
Date of Service: September 01, 2025
Seen and examined at the bedside. No acute events reported overnight. AFVSS
Patient states she feels well, pain currently well-controlled.
AM orthostatics negative though only supine and sitting. Denies any new complaints
Objective Data
-
Labs:
Laboratory Results
09/01/25
07:53
WBC Pending
Hgb Pending
Hct Pending
Plt Count Pending
Sodium Pending
Potassium Pending
Chloride Pending
Carbon Dioxide Pending
BUN Pending
Creatinine Pending
Glucose Pending
Calcium Pending
Vital Signs:
Vital Signs
Temp Pulse Resp BP Pulse Ox
97.8 F 75 17 125/70 96
09/01/25 07:46 09/01/25 07:46 09/01/25 07:46 09/01/25 07:46 09/01/25 07:46
I&O
08/31/25 09/01/25 09/02/25
06:59 06:59 06:59
Intake Total 700 / 700
Balance 700 / 700
Review of Systems
-
History Source: Patient
All other systems: Reviewed and negative
Physical Exam
-
General: Well Developed, Well Nourished and No Apparent Distress
HEENT: Normocephalic, Atraumatic, Moist Mucous Membranes and Anicteric
Respiratory: Clear to Auscultation and Non Labored Respirations; Negative Accessory Resp Muscle Use
Cardiac: Regular Rhythm and S1/S2; Negative Murmur, Rub or Gallop
GI: Soft, Nontender, Nondistended and Normal Bowel Sounds
Musculoskeletal: No Clubbing, No Cyanosis and No Edema
Skin: Warm and Dry; Negative Rash
Neuro: AO x 3, Nonfocal/Grossly Intact and Central Nerve's Intact; Negative Tremors
Psych: Calm
Data Reviewed
-
Labs: Labs Reviewed by me and Discussed with Patient
[2025-09-01] MEDS: TYLENOL 1000 MG PO ×3 (08:11→21:55)
[2025-09-01] MEDS: CYMBALTA DELAYED RELEASE 60 MG PO (08:11)
[2025-09-01] MEDS: SINEMET 25-100 1 TABLET PO ×3 (08:12→21:11)
[2025-09-01] MEDS: MIRAPEX 0.125 MG PO ×3 (08:12→21:11)
[2025-09-01] MEDS: ASPIR LOW (ENTERIC COATED) 81 MG PO (08:12)
[2025-09-01] MEDS: PROTONIX 40 MG PO (08:12)
[2025-09-01] MEDS: TOPROL XL 25 MG PO (08:13)
[2025-09-01] MEDS: COZAAR 25 MG PO (08:13)
[2025-09-01 08:14] LABS: Hematocrit 35.3 % (37.0-47.0); Hemoglobin 11.0 g/dL (12.0-16.0); Mean Corp Hgb Conc. 31.2 g/dL (33.0-37.0); Mean Corpuscular Volume 95.1 fL (81.0-99.0); Nucleated Red Blood Cells % 0 %; Platelet Count 256 10^3/uL (130-400); Red Cell Dist. Width 13.7 % (11.5-14.5)
[2025-09-01] MEDS: LR 1000 IV (08:15)
[2025-09-01 08:45] LABS: Blood Urea Nitrogen 15 mg/dl (7-17); Calcium 9.1 mg/dl (8.4-10.2); Carbon Dioxide 22 mmol/L (22-30); Chloride 109 mmol/L (98-107); Estimated Creatinine Clearance 44 ml/min; Glucose 84 mg/dl (70-99); Potassium 4.1 mmol/L (3.5-5.1); Sodium 135 mmol/L (135-145); eGFR > 60.00
[2025-09-01 09:04] LABS: Magnesium 1.6 mg/dl (1.6-2.3)
[2025-09-01] MEDS: DESENEX/MITRAZOL/ZEASORB TOPICAL (09:33)
--- NOTE | 2025-09-01 10:21 | CM ---
Patient seen at bedside
current with [facility]
Referral in [facility]
spoke with Mirian gallego
IMM explained & signed
Plan; Home with [facility] when stable
[facility]
[2025-09-01] MEDS: ROXICODONE 10 MG PO ×2 (12:46→21:11)
[2025-09-01] MEDS: CYMBALTA DELAYED RELEASE 30 MG PO ×2 (12:46→17:54)
[2025-09-01 15:30] VITALS: BP 155/67
[2025-09-01] MEDS: LOVENOX 40 MG SC (17:54)
[2025-09-01] MEDS: DESENEX/MITRAZOL/ZEASORB 1 APPLIC TOPICAL (21:11)
[2025-09-01] MEDS: LIPITOR 40 MG PO (21:11)
[2025-09-01] MEDS: REMOVE LIDOCAINE PATCH 1 PATCH REMOVE (21:17)
[2025-09-01 23:19] VITALS: BP 140/58
[2025-09-02] MEDS: ROXICODONE 10 MG PO ×5 (02:15→21:38)
--- NOTE | 2025-09-02 05:02 | CON.ORTHO ---
Consultation
-
Date/Time Consultation Requested: Aug 27
Date/Time Consultation Performed: Aug 27
Requesting Provider: Tomas
Performing Provider: Chelsea Miguel
Reason for Consultation: Pelvis fractures
Consultation - Orthopedics
History
History of Present Illness:
Patient is a 89-year-old female with PMH of hypertension, hypercholesterolemia, chronic back pain, COPD, GERD, depression, chronic kidney disease stage IIIb and chronic tubulointerstitial nephritis who presented to [facility] for evaluation of increased
pain to left side and left lower back on August 27. Patient reports a fall with fracture about 6-7 weeks ago, with a week long stay [facility] where she reported doing really well. She returned home
2 weeks ago and has been able to ambulate with walker and complete ADLs until 3-4 days ago she noticed increased pain and difficulty ambulating that progressively got worse 2 days leading up to her ER presentation. She states the 2 days prior to ED
she has not been able to do anything at all. She reports that visiting nurse came and recommended evaluation in ED. She was admitted to Dr. Marin' service and they requested PT/OT. Was initially well and D/c was in the works with [facility], when her pain
suddenly worsened. Due to her ongoing, severe, low back and pelvis pain we were requested in consultation. Updated CT was ordered.
Past Medical History:
hypertension
hypercholesterolemia
chronic back pain
COPD
GERD
depression
chronic kidney disease stage IIIb
chronic tubulointerstitial nephritis
Past Surgical History:
appendectomy
bilateral breast biopsy
hysterectomy
bilateral cataract extraction
Social History:
Tobacco: Non-smoker
Alcohol: Occasional
Drug: None
Living: Alone
Family History:
Family History: Not pertinent
ROS:
12 point negative except for those noted in the HPI
Allergies / Home Medications
Allergy/AdvReac Type Severity Reaction Status Date / Time
levofloxacin (From Levaquin) Allergy itching at Verified 08/30/25 14:11
injection
site after
several
doses in
2012
penicillin G (Penicillin G) Allergy Rash, Verified 08/30/25 14:11
Itching
vancomycin (Vancomycin) Allergy Rash, Verified 08/30/25 14:11
Itching
�Medication �Instructions �Recorded
aspirin 81 mg tablet,delayed 81 mg PO DAILY Blood Clot 01/03/25
release Prevention/Tx
atorvastatin 40 mg tablet (Lipitor) 40 mg PO HS High Cholesterol 01/03/25
carbidopa 25 mg-levodopa 100 mg 1 tab PO TID Neurological Condition 01/03/25
tablet (Sinemet)
duloxetine 30 mg capsule,delayed 30 mg PO TID@1200,2000 01/03/25
release (Cymbalta) Neurological Condition
duloxetine 60 mg capsule,delayed 60 mg PO DAILY Neurological 01/03/25
release (Cymbalta) Condition
losartan 25 mg tablet (Cozaar) 25 mg PO DAILY Blood Pressure 01/03/25
metoprolol succinate 25 mg 25 mg PO DAILY Blood Pressure 01/03/25
tablet,extended release 24 hr
(Toprol XL)
pantoprazole 40 mg tablet,delayed 40 mg PO DAILY Gastrointestinal 01/03/25
release Issue
pramipexole 0.125 mg tablet 0.125 mg PO TID Neurological 01/03/25
Condition
trazodone 50 mg tablet 50 mg PO HS PRN Insomnia 01/03/25
acetaminophen 500 mg tablet 1,000 mg (2 x 500 mg) PO TID 7 09/01/25
(Tylenol Extra Strength) days #42 tabs
ibuprofen 400 mg tablet 400 mg PO Q6HPRN PRN mild pain 5 09/01/25
days #20 tabs
lidocaine 5 % topical patch 1 patch topical DAILY #30 ea 09/01/25
oxycodone 5 mg tablet 2.5 mg (1/2 x 5 mg) PO Q4HPRN PRN 09/01/25
moderate pain 5 days #10 tabs
oxycodone 5 mg tablet 5 mg PO Q8H PRN severe pain 5 days 09/01/25
#14 tabs
Vital Signs / Lab Results
Temp Pulse Resp BP Pulse Ox
98.0 F 69 16 140/58 92
09/01/25 23:19 09/01/25 23:19 09/01/25 23:19 09/01/25 23:19 09/01/25 23:19
09/01/25 07:53
09/01/25 07:53
Assessment / Plan
PE: Currently at bedrest. Generalized pain to palpation of the lumbar and pelvis regions. 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 Calves soft, nontender. DNVI B/L LEs
Diagnostics:
CT (Aug 27) reveals subtle hairline fractures of the left S1 and S2, which are more obvious compared to prior examination. Still noted are fractures of the right sacral ala, lateral right superior pubic ramus, medial right superior pubic ramus,
right pubic body, and right inferior pubic ramus, which appear unchanged from prior
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
Plan: Upon receipt of this consult and review of imaging yesterday Dr. Miguel shared the patient's history and imaging studies with Dr. Enrrique Melara, Chief of Trauma, [place] [facility] It appears that the patient is dealing with a (likely) unstable
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 Nearing 2 months from the injury, Dr. Melara recommended an outpatient follow-up for clinical exam and further discussion. Patient's contact information was sent
directly to Dr. Melara, at his request, so that his office could contact the patient for scheduling. Unfortunately this issue is beyond the current capabilities of our Orthopaedic team here in a [facility]. Appreciate "Jackson"Tomas' efforts. Plan to D/c when medically stable. May WBAT on her walker, which is recommended at all times, with anticipated follow-up with Dr. Melara and his team [place] [facility] Contact/Demo information sent directly to Dr. Melara after discussing
with him this AM. His office will be contacting her to schedule an outpatient appointment
[2025-09-02 07:15] VITALS: BP 165/72
[2025-09-02] MEDS: ASPIR LOW (ENTERIC COATED) 81 MG PO (08:05)
[2025-09-02] MEDS: PROTONIX 40 MG PO (08:05)
[2025-09-02] MEDS: COZAAR 25 MG PO (08:05)
[2025-09-02] MEDS: TOPROL XL 25 MG PO (08:05)
[2025-09-02] MEDS: TYLENOL 1000 MG PO ×3 (08:05→21:39)
[2025-09-02] MEDS: CYMBALTA DELAYED RELEASE 60 MG PO (08:05)
[2025-09-02] MEDS: SINEMET 25-100 1 TABLET PO ×3 (08:05→21:38)
[2025-09-02] MEDS: MIRAPEX 0.125 MG PO ×3 (08:05→21:38)
[2025-09-02] MEDS: LIDOCAINE 4% PATCH 1 PATCH TOPICAL (08:06)
[2025-09-02] MEDS: DESENEX/MITRAZOL/ZEASORB TOPICAL ×2 (08:15→21:41)
--- NOTE | 2025-09-02 08:21 | W.PN.HOSP.TC ---
Today's Communication/Plan
-
Disposition planning
Oxycodone 10/Oxy 5/ibuprofen as needed
Tylenol and lidocaine patch standing
OP follow-up with [place] orthopedist for surgical intervention
Assessment / Plan
Assessment / Plan
#Intractable back pain
#Subacute displaced pelvic fracture due to mechanical fall
#Back surgery with screw placement (2007)
#Ambulatory dysfunction
- Presented with intractable back pain secondary to recent fall when she was laying down by her dog
- CT abdomen/pelvis here showed subacute fractures of the right sacrum, superior and inferior pubic ramus as well as body
- Upon arrival was started on multimodal analgesic regimen with Tylenol, NSAIDs, topical lidocaine, and PRN oxycodone
- Discussed with orthopedics who reviewed images with trauma team at [facility], likely needs surgical intervention due to instability
- PT was consulted, anticipate she may require SNF placement, case management on board
- Continue to monitor pain and titrate analgesics as needed, now on Oxy 10 as needed
- Continue with weightbearing as tolerated with walker and multimodal analgesics
- To follow-up with orthopedics at [place] for surgical intervention after SNF
#Asymptomatic bacteriuria
- UA with moderate bacteria, pyuria, positive leukocyte esterase; negative nitrite
- Denies any symptoms at this time, will continue to monitor
- Trend CBC and temperature curve off antibiotics for now
#Orthostatic hypotension
- Possibly associated with analgesics and hypokalemia
- Positive orthostatic vitals associated with symptoms on 08/31 with PT
- Will start on maintenance IV fluids and trend daily orthostats
- Repeat orthostatic vital signs negative morning 09/01
#COPD
- Stable, home regimen currently without any bronchodilators or ICS
- No signs of bronchospasm at this time, continue to monitor clinically
#CKD stage IIIb
#Chronic tubulointerstitial nephritis
- Creatinine baseline near 1.2; no known systemic complications of CKD
- Will continue to monitor BMP and UOP here, avoid nephrotoxins as able
#GERD
- No known history of Mendez's esophagus or erosive disease
- Home regimen includes pantoprazole 40 mg daily
#Restless leg syndrome
- Home regimen includes Sinemet and pramipexole
#Primary hypertension
- Home medications include losartan 25 mg daily and metoprolol succinate 25 mg daily
- No known history of hypertensive systemic disease
- Blood pressure currently well-controlled
#Abdominal aortic aneurysm
#Bilateral carotid stenosis
#H/O TIA
- Has ASCVD history; no known stents or bypasses
- Home regimen includes high intensity statin and aspirin
Diet: Regular
DVT: SQ heparin
CODE: DNR
Disposition: SNF
Discussed with orthopedics
Anticipated Discharge: 24 - 48 hours
Subjective/Interval History
-
Date of Service: September 02, 2025
Seen and examined at the bedside. No acute events reported overnight. AFVSS this morning
Repeat CT yesterday did show signs of unstable pelvic ring, orthopedics evaluated and recommending follow-up with surgeon at [place] for possible pelvic surgical reconstruction
As of this morning she states her pain is improved with increased dose of oxycodone. Dispo now for SNF. Denies any new complaints
Objective Data
-
Vital Signs:
Vital Signs
Temp Pulse Resp BP Pulse Ox
98.0 F 69 16 140/58 92
09/01/25 23:19 09/01/25 23:19 09/01/25 23:19 09/01/25 23:19 09/01/25 23:19
I&O
09/01/25 09/02/25 09/03/25
06:59 06:59 06:59
Intake Total 2360 / 2360
Output Total 120 / 120
Balance 2360 / 2360 -120 / -120
Review of Systems
-
History Source: Patient
All other systems: Reviewed and negative
Physical Exam
-
General: Well Developed, Well Nourished and No Apparent Distress
HEENT: Normocephalic, Atraumatic and Moist Mucous Membranes
Respiratory: Clear to Auscultation and Non Labored Respirations; Negative Accessory Resp Muscle Use
Cardiac: Regular Rhythm and S1/S2; Negative Murmur, Rub or Gallop
GI: Soft, Nontender, Nondistended and Normal Bowel Sounds
Musculoskeletal: No Clubbing, No Cyanosis and No Edema
Skin: Warm and Dry; Negative Rash
Neuro: AO x 3, Nonfocal/Grossly Intact and Central Nerve's Intact
Psych: Calm
--- NOTE | 2025-09-02 12:00 | W.PN.UPDATE ---
Update Note
Progress Note Update
Discussed further with Dr. Melara. The patient does have a moderately difficult social situation. Dr. Melara has graciously agreed to accept the patient in transfer if that makes the most sense. Discussed with Dr. Marin, RN, and CM. they will speak
to the patient. If she is amendable to be transferred to [place], that may make the most sense. If so, Dr. Melara, himself, will contact the [place] transfer center so that nothing gets mixed up heading into the weekend, as the on-call this weekend for
[facility] is not trauma
[2025-09-02 12:02] VITALS: BP 159/69
[2025-09-02] MEDS: CYMBALTA DELAYED RELEASE 30 MG PO ×2 (13:00→17:19)
--- NOTE | 2025-09-02 14:23 | CM ---
Patient is for possible hospital to hospital transfer.
Plan; Hospital to hospital transfer.
[2025-09-02 15:01] VITALS: BP 155/67
[2025-09-02] MEDS: FLUZONE HIGH-DOSE 2025-26 0.5 ML IM (17:05)
[2025-09-02] MEDS: LOVENOX 40 MG SC (17:19)
[2025-09-02] MEDS: LIPITOR 40 MG PO (21:38)
[2025-09-02] MEDS: REMOVE LIDOCAINE PATCH 1 PATCH REMOVE (21:41)
[2025-09-02 23:18] VITALS: BP 152/63
[2025-09-03] MEDS: ROXICODONE 10 MG PO ×5 (04:37→21:24)
[2025-09-03 07:50] VITALS: BP 170/81
[2025-09-03] MEDS: CYMBALTA DELAYED RELEASE 60 MG PO (08:02)
[2025-09-03] MEDS: SINEMET 25-100 1 TABLET PO ×3 (08:02→21:29)
[2025-09-03] MEDS: MIRAPEX 0.125 MG PO ×3 (08:02→21:29)
[2025-09-03] MEDS: PROTONIX 40 MG PO (08:02)
[2025-09-03] MEDS: ASPIR LOW (ENTERIC COATED) 81 MG PO (08:02)
[2025-09-03] MEDS: LIDOCAINE 4% PATCH 1 PATCH TOPICAL (08:03)
[2025-09-03] MEDS: TOPROL XL 25 MG PO (08:03)
[2025-09-03] MEDS: DESENEX/MITRAZOL/ZEASORB TOPICAL (08:03)
[2025-09-03] MEDS: COZAAR 25 MG PO (08:03)
[2025-09-03] MEDS: TYLENOL 1000 MG PO ×3 (08:03→21:28)
--- NOTE | 2025-09-03 08:44 | W.PN.HOSP.TC ---
Today's Communication/Plan
-
Multimodal analgesics
Pending transfer to [facility] Friday for surgical intervention to pelvic fractures
Assessment / Plan
Assessment / Plan
#Intractable back pain
#Subacute displaced pelvic fracture due to mechanical fall
#Back surgery with screw placement (2007)
#Ambulatory dysfunction
- Presented with intractable back pain secondary to recent fall when she was laying down by her dog
- CT abdomen/pelvis here showed subacute fractures of the right sacrum, superior and inferior pubic ramus as well as body
- Upon arrival was started on multimodal analgesic regimen with Tylenol, NSAIDs, topical lidocaine, and PRN oxycodone
- Discussed with orthopedics who reviewed images with trauma team at [facility], likely needs surgical intervention due to instability
- PT was consulted, anticipate she may require SNF placement, case management on board
- Continue to monitor pain and titrate analgesics as needed, now on Oxy 10 as needed
- Continue with weightbearing as tolerated with walker and multimodal analgesics
- Now planning for transfer to [facility] for surgical intervention with Dr. Melara
#Asymptomatic bacteriuria
- UA with moderate bacteria, pyuria, positive leukocyte esterase; negative nitrite
- Denies any symptoms at this time, will continue to monitor
- Trend CBC and temperature curve off antibiotics for now
#Orthostatic hypotension
- Possibly associated with analgesics and hypokalemia
- Positive orthostatic vitals associated with symptoms on 08/31 with PT
- Will start on maintenance IV fluids and trend daily orthostats
- Repeat orthostatic vital signs negative morning 09/01
#COPD
- Stable, home regimen currently without any bronchodilators or ICS
- No signs of bronchospasm at this time, continue to monitor clinically
#CKD stage IIIb
#Chronic tubulointerstitial nephritis
- Creatinine baseline near 1.2; no known systemic complications of CKD
- Will continue to monitor BMP and UOP here, avoid nephrotoxins as able
#GERD
- No known history of Mendez's esophagus or erosive disease
- Home regimen includes pantoprazole 40 mg daily
#Restless leg syndrome
- Home regimen includes Sinemet and pramipexole
#Primary hypertension
- Home medications include losartan 25 mg daily and metoprolol succinate 25 mg daily
- No known history of hypertensive systemic disease
- Blood pressure currently well-controlled
#Abdominal aortic aneurysm
#Bilateral carotid stenosis
#H/O TIA
- Has ASCVD history; no known stents or bypasses
- Home regimen includes high intensity statin and aspirin
Diet: Regular
DVT: SQ heparin
CODE: DNR
Disposition: Transfer to [facility] on Friday, consent obtained and placed in chart
Discussed with orthopedics
Anticipated Discharge: Within 24 hours
Subjective/Interval History
-
Date of Service: September 03, 2025
Seen and examined at the bedside. No acute events reported overnight. AFVSS this morning
Patient states he was fairly well, pain remains improved on higher dose oxycodone.
Remains amenable to transfer to [facility] as planned for tomorrow. Denies any new complaints
Objective Data
-
Vital Signs:
Vital Signs
Temp Pulse Resp BP Pulse Ox
98.4 F 59 18 152/63 92
09/02/25 23:18 09/02/25 23:18 09/02/25 23:18 09/02/25 23:18 09/02/25 23:18
I&O
09/02/25 09/03/25 09/04/25
06:59 06:59 05:59
Intake Total 2360 / 2360 660 / 660
Output Total 120 / 120
Balance 2360 / 2360 540 / 540
Review of Systems
-
History Source: Patient
All other systems: Reviewed and negative
Physical Exam
-
General: Well Developed, No Apparent Distress and Other (Frail appearing)
HEENT: Normocephalic, Atraumatic, Moist Mucous Membranes and Anicteric
Respiratory: Clear to Auscultation and Non Labored Respirations
Cardiac: Regular Rhythm and S1/S2; Negative Murmur, Rub or Gallop
GI: Soft, Nontender, Nondistended and Normal Bowel Sounds
Musculoskeletal: No Clubbing, No Cyanosis, No Edema and Other (Mild tenderness to pelvic palpation)
Skin: Warm and Dry; Negative Rash
Neuro: AO x 3, Nonfocal/Grossly Intact and Central Nerve's Intact; Negative Tremors
Psych: Calm
[2025-09-03] MEDS: CYMBALTA DELAYED RELEASE 30 MG PO ×2 (12:15→16:57)
--- NOTE | 2025-09-03 13:30 | W.PN.UPDATE ---
Update Note
Progress Note Update
Chart reviewed. 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 Continue treatment and multimodal analgesics per primary team. May WBAT on her walker, which is recommended at all times. Planning for
transfer to [facility] on Friday for likely surgical intervention with Dr. Melara. Please reach out with any Orthopedic questions or concerns.
[2025-09-03 15:05] VITALS: BP 172/86
[2025-09-03] MEDS: LOVENOX 40 MG SC (16:56)
[2025-09-03] MEDS: REMOVE LIDOCAINE PATCH 1 PATCH REMOVE (21:08)
[2025-09-03] MEDS: DESYREL 50 MG PO (21:24)
[2025-09-03] MEDS: LIPITOR 40 MG PO (21:29)
[2025-09-03] MEDS: DESENEX/MITRAZOL/ZEASORB 1 APPLIC TOPICAL (21:29)
[2025-09-03 23:00] VITALS: BP 149/72
[2025-09-04] MEDS: ROXICODONE 10 MG PO ×4 (05:50→21:10)
[2025-09-04] MEDS: CYMBALTA DELAYED RELEASE 60 MG PO (07:48)
[2025-09-04] MEDS: SINEMET 25-100 1 TABLET PO ×3 (07:48→21:09)
[2025-09-04] MEDS: TYLENOL 1000 MG PO ×3 (07:48→21:09)
[2025-09-04] MEDS: ASPIR LOW (ENTERIC COATED) 81 MG PO (07:48)
[2025-09-04] MEDS: PROTONIX 40 MG PO (07:48)
[2025-09-04] MEDS: COZAAR 25 MG PO (07:48)
[2025-09-04] MEDS: LIDOCAINE 4% PATCH 1 PATCH TOPICAL (07:49)
[2025-09-04] MEDS: TOPROL XL 25 MG PO (07:49)
[2025-09-04] MEDS: MIRAPEX 0.125 MG PO ×3 (07:49→21:09)
[2025-09-04] MEDS: DESENEX/MITRAZOL/ZEASORB 1 APPLIC TOPICAL ×2 (07:50→21:09)
--- NOTE | 2025-09-04 08:07 | W.PN.HOSP.TC ---
Today's Communication/Plan
-
Continue current management
Transfer to [facility] for orthopedic intervention
Assessment / Plan
Assessment / Plan
#Intractable back pain
#Subacute displaced pelvic fracture due to mechanical fall
#Back surgery with screw placement (2007)
#Ambulatory dysfunction
- Presented with intractable back pain secondary to recent fall when she was laying down by her dog
- CT abdomen/pelvis here showed subacute fractures of the right sacrum, superior and inferior pubic ramus as well as body
- Upon arrival was started on multimodal analgesic regimen with Tylenol, NSAIDs, topical lidocaine, and PRN oxycodone
- Discussed with orthopedics who reviewed images with trauma team at [facility], likely needs surgical intervention due to instability
- PT was consulted, anticipate she may require SNF placement, case management on board
- Continue to monitor pain and titrate analgesics as needed, now on Oxy 10 as needed
- Continue with weightbearing as tolerated with walker and multimodal analgesics
- Now planning for transfer to [facility] for surgical intervention with Dr. Melara
#Asymptomatic bacteriuria
- UA with moderate bacteria, pyuria, positive leukocyte esterase; negative nitrite
- Denies any symptoms at this time, will continue to monitor
- Trend CBC and temperature curve off antibiotics for now
#Orthostatic hypotension
- Possibly associated with analgesics and hypokalemia
- Positive orthostatic vitals associated with symptoms on 08/31 with PT
- Will start on maintenance IV fluids and trend daily orthostats
- Repeat orthostatic vital signs negative morning 09/01
#COPD
- Stable, home regimen currently without any bronchodilators or ICS
- No signs of bronchospasm at this time, continue to monitor clinically
#CKD stage IIIb
#Chronic tubulointerstitial nephritis
- Creatinine baseline near 1.2; no known systemic complications of CKD
- Will continue to monitor BMP and UOP here, avoid nephrotoxins as able
#GERD
- No known history of Mendez's esophagus or erosive disease
- Home regimen includes pantoprazole 40 mg daily
#Restless leg syndrome
- Home regimen includes Sinemet and pramipexole
#Primary hypertension
- Home medications include losartan 25 mg daily and metoprolol succinate 25 mg daily
- No known history of hypertensive systemic disease
- Blood pressure currently well-controlled
#Abdominal aortic aneurysm
#Bilateral carotid stenosis
#H/O TIA
- Has ASCVD history; no known stents or bypasses
- Home regimen includes high intensity statin and aspirin
Diet: Regular
DVT: SQ heparin
CODE: DNR
Disposition: Transfer to [facility] on Friday, consent obtained and placed in chart
Discussed with orthopedics today
Anticipated Discharge: Within 24 hours
Subjective/Interval History
-
Date of Service: September 04, 2025
Seen and examined at the bedside. No acute events reported overnight. AFVSS this morning
Patient states she feels well this morning, pain currently well-controlled
Denies any new complaints. Planned transfer to [facility] to be seen by Dr. Melara from orthopedics
Objective Data
-
Labs:
Laboratory Results
09/04/25
07:50
WBC Pending
Hgb Pending
Hct Pending
Plt Count Pending
Sodium Pending
Potassium Pending
Chloride Pending
Carbon Dioxide Pending
BUN Pending
Creatinine Pending
Glucose Pending
Calcium Pending
Vital Signs:
Vital Signs
Temp Pulse Resp BP Pulse Ox
98.2 F 63 18 149/72 94
09/03/25 23:00 09/03/25 23:00 09/03/25 23:00 09/03/25 23:00 09/03/25 23:00
I&O
09/03/25 09/04/25 09/05/25
06:59 05:59 06:59
Intake Total 660 / 660
Output Total 120 / 120
Balance 540 / 540
Review of Systems
-
History Source: Patient
All other systems: Reviewed and negative
Physical Exam
-
General: Well Developed, No Apparent Distress and Other (Frail)
HEENT: Normocephalic, Atraumatic and Moist Mucous Membranes
Respiratory: Clear to Auscultation and Non Labored Respirations
Cardiac: Regular Rhythm and S1/S2; Negative Murmur, Rub or Gallop
GI: Soft, Nontender, Nondistended and Normal Bowel Sounds
Musculoskeletal: No Clubbing, No Cyanosis and No Edema
Skin: Warm and Dry; Negative Rash
Neuro: AO x 3, Nonfocal/Grossly Intact and Central Nerve's Intact
Psych: Calm
[2025-09-04 08:25] VITALS: BP 132/73; BP 163/60; BP 96/46; PULSE 64; PULSE 83
[2025-09-04 09:16] LABS: Hematocrit 38.0 % (37.0-47.0); Hemoglobin 12.5 g/dL (12.0-16.0); Mean Corp Hgb Conc. 32.9 g/dL (33.0-37.0); Mean Corpuscular Volume 88.2 fL (81.0-99.0); Nucleated Red Blood Cells % 0 %; Platelet Count 279 10^3/uL (130-400); Red Cell Dist. Width 13.5 % (11.5-14.5)
[2025-09-04 10:26] LABS: Blood Urea Nitrogen 16 mg/dl (7-17); Calcium 9.4 mg/dl (8.4-10.2); Carbon Dioxide 26 mmol/L (22-30); Chloride 101 mmol/L (98-107); Estimated Creatinine Clearance 39 ml/min; Glucose 78 mg/dl (70-99); Potassium 4.3 mmol/L (3.5-5.1); Sodium 134 mmol/L (135-145); eGFR > 60.00
[2025-09-04] MEDS: CYMBALTA DELAYED RELEASE 30 MG PO ×2 (11:19→17:02)
--- NOTE | 2025-09-04 15:11 | W.DCSUMMARY ---
Discharge Summary
Discharge Data
Date of Admission: 08/30/25
Date of Discharge: 09/04/25
Total time spent discharging patient (in min): 37
-
Pending Results: No
Hospital Course
Discharging physician: Arnulfo Marin DO
Discharge disposition: [facility]
Discharge diagnoses:
Subacute unstable pelvic fracture
Hip pain
Ambulatory dysfunction
Orthostasis
Chronic discharge diagnoses:
COPD without exacerbation
CKD 3B due to tubulointerstitial nephritis
Restless leg syndrome
Abdominal aortic aneurysm
Bilateral carotid stenosis
Hypertension
Dyslipidemia
History of STAR
Hospital course:
89-year-old female who presented to the hospital 1 to 2 weeks after a fall where she was pulled down by a dog leash and fell onto her pelvis with subsequent pain. Was seen at an outside hospital ([facility]) where she was evaluated by orthopedics
however had ongoing pain. Came to [place] emergency department and was started on multimodal analgesics with lidocaine patch, standing Tylenol, as needed oxycodone and NSAIDs. She was seen by physical therapy though had worsening to her pain on
day 2 of hospital stay. Had imaging of her pelvis with CT that showed signs of subacute unstable pelvic ring fracture. Was evaluated by orthopedics who spoke with orthopedist at [facility] who recommended surgical
intervention and transfer to [facility]. She remained in the hospital until transfer could be coordinated. Plan for surgical intervention to unstable pelvic ring fracture week of 09/05/2025 at [facility] with Dr. Enrrique Dozier.
Of note, she was initially orthostatic on vital signs however her hemodynamics improved with IV fluids and she did not require additional intervention such as midodrine.
Consultants:
Orthopedics�Edgardobettina Miguel MD
Pertinent imaging findings:
CT A/P without contrast (08/30/2025)
IMPRESSION: No renal or ureteral calculus. No bladder calculus. No obstructive uropathy. Asymmetric left renal cortical atrophy and cortical scarring. Small right renal cyst. Diverticulosis without acute diverticulitis. Mild to moderate colonic
fecal burden. No acute inflammatory process within the abdomen or pelvis. Small liver cyst. Cholelithiasis. Subacute fractures involving the right sacrum, right superior and inferior pubic ramus and right pubic body, as described. Lumbar
postsurgical and degenerative changes.
CT A/P without contrast (09/01/2025)
IMPRESSION: Subtle hairline fractures of left S1 and S2 are more apparent compared to prior examination. Otherwise, previously described fractures of the right sacral ala, lateral right superior pubic ramus, medial right superior pubic ramus, right
pubic body, and right inferior pubic ramus remain essentially unchanged. Slightly progressed mild dependent atelectasis in the posterior lung bases. Interval development of trace bilateral pleural effusions, left greater than right. As before,
postsurgical and degenerative changes of the lumbar spine are seen. 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 No other apparent or significant interval
change compared to prior examination.
Procedures: N/A
Follow-up:
Family doctor within 1 week of discharge from [facility]
Orthopedics follow-up to be arranged by Dr. Dozier
Discharge Plan
-
Patient Disposition: Against Medical Advice
Discharge Diagnosis/Procedures: Subacute displaced pelvic fractures
Recent mechanical fall
Asymptomatic bacteriuria
Resolved orthostasis with IV fluid
Condition: Fair
Diet: Low Cholesterol
Activity: As tolerated and With Walker
Additional Activity: Weightbearing as tolerated with walker used at all time
Driving Restrictions: Not until seen by your Dr
Bathing Restrictions: None
Blood Work: BMP and CBC in 5-7 days
Others Tests: Follow-up with orthopedist outpatient
Other Services: VN and PT
Instructions: Pelvic fracture
Referrals:
Enrrique Dozier MD [Non-Admitting Privileges, Orthopedics] - in less than 1 week
Referral Note: Orthopedics office to contact you to schedule an appointment
Myrna Pathak DO [Family Provider, Family Practice] - in less than 1 week
Additional Discharge Medication Instructions: CONTACT/DEMO INFO SENT TO DR. ENRRIQUE DOZIER (CHIEF OF TRAUMA AT [facility]) WHO WILL BE HAVING HIS OFFICE CONTACT HER TO SCHEDULE AN APPOINTMENT.
Standing pain regimen: Lidocaine patch daily, Tylenol 1 g 4 times daily
Mild breakthrough pain: Ibuprofen 400 mg every 6 hours as needed
Moderate breakthrough pain: Oxycodone 5 mg every 4 hours as needed
Severe breakthrough pain: Oxycodone 10 mg every 8 hours as needed
If you need refills on any of these medications then contact your family doctor
Prescriptions:
New
ibuprofen 400 mg Tablet
400 mg PO Q6HPRN PRN (Reason: mild pain) 5 Days Qty: 20 0RF
acetaminophen [Tylenol Extra Strength] 500 mg Tablet
1,000 mg PO TID 7 Days Qty: 42 0RF
lidocaine 5 % adhesive patch,medicated
1 patch topical DAILY Qty: 30 0RF
oxycodone 10 mg tablet
10 mg PO Q8H PRN (Reason: severe breakthrough pain) 5 Days Qty: 14 0RF
oxycodone 5 mg tablet
5 mg PO Q6H PRN (Reason: Moderate Breakthrough pain) 5 Days Qty: 20 0RF
Continued
atorvastatin [Lipitor] 40 mg Tablet
40 mg PO HS
trazodone 50 mg Tablet
50 mg PO HS PRN (Reason: Insomnia)
aspirin 81 mg Tablet,Delayed Release (Dr/Ec)
81 mg PO DAILY
pantoprazole 40 mg Tablet,Delayed Release (Dr/Ec)
40 mg PO DAILY
Patient Comments:
pt reports no longer taking
losartan [Cozaar] 25 mg Tablet
25 mg PO DAILY
pramipexole 0.125 mg Tablet
0.125 mg PO TID
metoprolol succinate [Toprol XL] 25 mg Tablet Extended Release 24 Hr
25 mg PO DAILY
carbidopa-levodopa [Sinemet] 25-100 mg Tablet
1 tab PO TID
duloxetine [Cymbalta] 30 mg Capsule,Delayed Release(Dr/Ec)
30 mg PO TID@1200,2000
duloxetine [Cymbalta] 60 mg Capsule,Delayed Release(Dr/Ec)
60 mg PO DAILY
Discharge Orders:
Discharge Patient (As Directed); Ordered 09/02/25
Ordered By: Arnulfo Marin
Discharge Date and Time
Print Language: GIBRALTARIAN
[2025-09-04 15:47] VITALS: BP 134/54
[2025-09-04] MEDS: LOVENOX 40 MG SC (17:02)
[2025-09-04] MEDS: LIPITOR 40 MG PO (21:09)
[2025-09-04] MEDS: REMOVE LIDOCAINE PATCH 1 PATCH REMOVE (21:09)
[2025-09-04 23:00] VITALS: BP 123/50
[2025-09-05] MEDS: ROXICODONE 10 MG PO ×2 (06:06→16:56)
[2025-09-05 07:07] VITALS: BP 147/73
[2025-09-05] MEDS: LIDOCAINE 4% PATCH 1 PATCH TOPICAL (08:01)
[2025-09-05] MEDS: TYLENOL 1000 MG PO ×2 (08:02→15:16)
[2025-09-05] MEDS: TOPROL XL 25 MG PO (08:02)
[2025-09-05] MEDS: CYMBALTA DELAYED RELEASE 60 MG PO (08:02)
[2025-09-05] MEDS: MIRAPEX 0.125 MG PO ×2 (08:03→15:17)
[2025-09-05] MEDS: PROTONIX 40 MG PO (08:03)
[2025-09-05] MEDS: COZAAR 25 MG PO (08:03)
[2025-09-05] MEDS: SINEMET 25-100 1 TABLET PO ×2 (08:03→15:16)
[2025-09-05] MEDS: ASPIR LOW (ENTERIC COATED) 81 MG PO (08:05)
[2025-09-05] MEDS: DESENEX/MITRAZOL/ZEASORB 1 APPLIC TOPICAL (08:08)
--- NOTE | 2025-09-05 11:18 | CM ---
Addendum entered by Steve Sorensen 09/05/25 14:41:
Patient will transfer today
Ambulance transport form completed
IMM verbally reviewed, copy provided, copy on chart
Original Note:
Chart reviewed. Transfer to [facility] for orthopedic intervention
Pending transfer at this time
Plan: Transfer to [facility]
[2025-09-05] MEDS: CYMBALTA DELAYED RELEASE 30 MG PO ×2 (11:57→17:41)
[2025-09-05 15:00] VITALS: BP 134/65
--- NOTE | 2025-09-05 15:17 | W.PN.HOSP.TC ---
Today's Communication/Plan
-
tx to steve
Assessment / Plan
Assessment / Plan
#Intractable back pain
#Subacute displaced pelvic fracture due to mechanical fall
#Back surgery with screw placement (2007)
#Ambulatory dysfunction
- Presented with intractable back pain secondary to recent fall when she was laying down by her dog
- CT abdomen/pelvis here showed subacute fractures of the right sacrum, superior and inferior pubic ramus as well as body
- Upon arrival was started on multimodal analgesic regimen with Tylenol, NSAIDs, topical lidocaine, and PRN oxycodone
- Discussed with orthopedics who reviewed images with trauma team at [facility], likely needs surgical intervention due to instability
- PT was consulted, anticipate she may require SNF placement, case management on board
- Continue to monitor pain and titrate analgesics as needed, now on Oxy 10 as needed
- Continue with weightbearing as tolerated with walker and multimodal analgesics
- Now planning for transfer to [facility] for surgical intervention with Dr. Melara
#Asymptomatic bacteriuria
- UA with moderate bacteria, pyuria, positive leukocyte esterase; negative nitrite
- Denies any symptoms at this time, will continue to monitor
- Trend CBC and temperature curve off antibiotics for now
#Hyponatremia
-mild
-ctm
#Orthostatic hypotension
- Possibly associated with analgesics and hypokalemia
- Positive orthostatic vitals associated with symptoms on 08/31 with PT
- Will start on maintenance IV fluids and trend daily orthostats
- Repeat orthostatic vital signs negative morning 09/01
#COPD
- Stable, home regimen currently without any bronchodilators or ICS
- No signs of bronchospasm at this time, continue to monitor clinically
#CKD stage IIIb
#Chronic tubulointerstitial nephritis
- Creatinine baseline near 1.2; no known systemic complications of CKD
- Will continue to monitor BMP and UOP here, avoid nephrotoxins as able
#GERD
- No known history of Mendez's esophagus or erosive disease
- Home regimen includes pantoprazole 40 mg daily
#Restless leg syndrome
- Home regimen includes Sinemet and pramipexole
#Primary hypertension
- Home medications include losartan 25 mg daily and metoprolol succinate 25 mg daily
- No known history of hypertensive systemic disease
- Blood pressure currently well-controlled
#Abdominal aortic aneurysm
#Bilateral carotid stenosis
#H/O TIA
- Has ASCVD history; no known stents or bypasses
- Home regimen includes high intensity statin and aspirin
Diet: Regular
DVT: SQ heparin
CODE: DNR
Disposition: Transfer to [place]
More than 30 minutes spent in discharge including
Final examination of the patient
Summarizing hospital stay
Instructions for continuing care to all relevant caregivers
Preparation of discharge records, prescriptions, and referral forms
Total time spent (in minutes): 36
Anticipated Discharge: Today
Subjective/Interval History
-
Date of Service: September 05, 2025
pending tx; no acute events overnight
Objective Data
-
Vital Signs:
Vital Signs
Temp Pulse Resp BP Pulse Ox
98.0 F 66 12 147/73 93
09/05/25 07:07 09/05/25 07:07 09/05/25 07:07 09/05/25 07:07 09/05/25 07:07
I&O
09/04/25 09/05/25 09/06/25
05:59 06:59 06:59
Intake Total 480 / 480
Balance 480 / 480
Review of Systems
-
History Source: Patient
All other systems: Reviewed and negative
Data Reviewed
-
Labs: Labs Reviewed by me and Discussed with Patient
--- NOTE | 2025-09-05 15:21 | W.DS.TRANS ---
DC Summary - Or First Assist Registered Nurse
-
Discharge Instructions:
Discharge Diagnosis/Procedures Subacute displaced pelvic fractures
Recent mechanical fall
Asymptomatic bacteriuria
Resolved orthostasis with IV fluid
Diet Low Cholesterol
Activity As tolerated,With Walker
Additional Activity Weightbearing as tolerated with walker used at
all time
Driving Restrictions Not until seen by your Dr
Bathing Restrictions None
Blood Work BMP and CBC in 5-7 days
Others Tests Follow-up with orthopedist outpatient
Other Services PT,VN
Instructions: Pelvic fracture
Stand-Alone Forms:
Changes to Home Medications: No
Discharge Medications:
DC Medications w/original date entered in [facility]
aspirin 81 mg tablet,delayed release 81 mg PO DAILY Blood Clot Prevention/Tx 01/03/25
atorvastatin 40 mg tablet (Lipitor) 40 mg PO HS High Cholesterol 01/03/25
carbidopa 25 mg-levodopa 100 mg tablet (Sinemet) 1 tab PO TID Neurological Condition 01/03/25
duloxetine 30 mg capsule,delayed release (Cymbalta) 30 mg PO TID@1200,2000 Neurological Condition 01/03/25
duloxetine 60 mg capsule,delayed release (Cymbalta) 60 mg PO DAILY Neurological Condition 01/03/25
losartan 25 mg tablet (Cozaar) 25 mg PO DAILY Blood Pressure 01/03/25
metoprolol succinate 25 mg tablet,extended release 24 hr (Toprol XL) 25 mg PO DAILY Blood Pressure 01/03/25
pantoprazole 40 mg tablet,delayed release 40 mg PO DAILY Gastrointestinal Issue 01/03/25
pramipexole 0.125 mg tablet 0.125 mg PO TID Neurological Condition 01/03/25
trazodone 50 mg tablet 50 mg PO HS PRN Insomnia 01/03/25
acetaminophen 500 mg tablet (Tylenol Extra Strength) 1,000 mg (2 x 500 mg) PO TID 7 days #42 tabs 09/01/25
ibuprofen 400 mg tablet 400 mg PO Q6HPRN PRN mild pain 5 days #20 tabs 09/01/25
lidocaine 5 % topical patch 1 patch topical DAILY #30 ea 09/01/25
oxycodone 10 mg tablet 10 mg PO Q8H PRN severe breakthrough pain 5 days #14 tabs 09/02/25
oxycodone 5 mg tablet 5 mg PO Q6H PRN Moderate Breakthrough pain 5 days #20 tabs 09/02/25
Home Medication Changes
na
Pending Results: No
[2025-09-05] MEDS: LOVENOX 40 MG SC (17:42)
== END 2025-09-05 19:18 | disposition short-term general hospital (02) | DRG 552 ==
LOC: 4 WEST ACU 09:14
PROVIDERS: Internal Medicine; Nurse Practitioner; ADMITTING PHYSICIAN Internal Medicine; ATTENDING PHYSICIAN Internal Medicine; CONSULT PHYSICIAN Orthopaedic Surgery; EMERGENCY PHYSICIAN Student in an Organized Health Care Education/Training Program; FAMILY PHYSICIAN Family Medicine
PROC: 3E02340 Introduction of Influenza Vaccine into Muscle, Percutaneous Approach (ICD-10-PCS; 2025-09-02)
DX: M47.816 Spondylosis without myelopathy or radiculopathy, lumbar region (principal); S32.9XXA Fracture of unspecified parts of lumbosacral spine and pelvis, initial encounter for closed fracture; N11.9 Chronic tubulo-interstitial nephritis, unspecified; E87.1 Hypo-osmolality and hyponatremia; J98.11 Atelectasis; W19.XXXA Unspecified fall, initial encounter; Z87.891 Personal history of nicotine dependence; Z66 Do not resuscitate; G25.81 Restless legs syndrome; N18.32 Chronic kidney disease, stage 3b; I12.9 Hypertensive chronic kidney disease with stage 1 through stage 4 chronic kidney disease, or unspecified chronic kidney disease; K80.20 Calculus of gallbladder without cholecystitis without obstruction; G20.A1 Parkinson's disease without dyskinesia, without mention of fluctuations; G89.29 Other chronic pain; K21.9 Gastro-esophageal reflux disease without esophagitis; F32.A Depression, unspecified; J44.9 Chronic obstructive pulmonary disease, unspecified; I95.1 Orthostatic hypotension; E78.00 Pure hypercholesterolemia, unspecified; I65.23 Occlusion and stenosis of bilateral carotid arteries; I71.40 Abdominal aortic aneurysm, without rupture, unspecified; K57.30 Diverticulosis of large intestine without perforation or abscess without bleeding; K76.89 Other specified diseases of liver; N28.1 Cyst of kidney, acquired; Z53.29 Procedure and treatment not carried out because of patient's decision for other reasons; Z79.899 Other long term (current) drug therapy; Z23 Encounter for immunization
CPT/HCPCS: 72110; 74176; 80048; 80053; 81003; 81015; 83735; 84443; 85025; 87086; 96374; 96375; 96376; 97116; 97162; 99285